=== PATIENT | female | born 1990 | race Two or more races ===

== ENCOUNTER 2023-07-23 18:38 | Emergency (ER) | payer OTHER, MEDICAID ==
[~2023-07-23] VITALS: Ht 167.6 cm; Wt 137.7 kg
[2023-07-23] MEDS ORDERED: CEPH500C PO (20:20)
[2023-07-23 20:39] VITALS: BP 157/81; PULSE 79; RESP 18; TEMP 98.4; O2SAT 95
== END 2023-07-23 20:42 | disposition home or self-care (01) ==
LOC: ER 18:38
DX: I83.891 Varicose veins of right lower extremity with other complications (principal)